=== PATIENT | male | born 1980 | race Caucasian/White ===

== ENCOUNTER 2018-08-14 10:31 | Emergency (ER) | payer OTHER ==
--- NOTE | 2018-08-14 11:04 | EDM.PDOC ---
ED HPI GENERAL MEDICAL PROBLEM - General Chief Complaint: Fever Stated Complaint: FLU SX Time Seen by Provider: 08/14/18 11:04 Source of Information: Reports: Patient History Limitations: Reports: No Limitations - History of Present Illness INITIAL COMMENTS - FREE TEXT/NARRATIVE: 38-year-old male presents to the ED with a 3 day history of illness. Started with fever chills and then cough and then body aches. Has a severe headache as well. Obstructive. Of time to develop versus all developing it once. He has associated nausea vomiting and some diarrhea as well. He's weak he is dizzy and nothing will stay down to bring his fever under control. States he is having diaphoresis of any soaking a hoodie. Several of his children been sick with upper respiratory tract infection 2. States his cough is fairly productive of a yellowish phlegm. He rarely gets ill. He did not have a flu shot this last year. Body aches particularly involving his large vessels neck low back and thighs. is been bilious without blood diarrhea is moderate loose and watery. No blood Onset: Sudden Onset Date: 08/11/18 Duration: Day(s):, Constant, Getting Worse (Getting more dehydrated.) Location: Reports: Chest, Abdomen (Heart paroxysmal productive sounding cough intermittent nausea vomiting and diarrhea), Other Quality: Reports: Ache (Fever chills headache and generalized myalgia) Severity: Moderate Improves with: Reports: None Worsens with: Reports: Eating Context: Reports: Sick Contact. Denies: Activity, Exercise (98 or drink.), Lifting, Trauma, Other Associated Symptoms: Reports: Cough, cough w sputum, Diaphoresis, Fever/Chills, Headaches, Loss of Appetite, Malaise, Nausea/Vomiting, Shortness of Breath, Weakness. 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 (see below) (Nothing will stay down) Generalized Pain Score (Numeric/FACES): 5 - Related Data Allergies Allergy/AdvReac Type Severity Reaction Status Date / Time No Known Allergies Allergy Verified 08/14/18 10:40 Home Meds: Home Meds Hydrocodone/Chlorphen P-Stirex [Tussionex Pennkinetic Susp] 5 ml PO Q12H PRN # 60 ml 08/14/18 [Rx] Sertraline [Zoloft] 50 mg PO DAILY 08/14/18 [History] levoFLOXacin [Levaquin] 500 mg PO DAILY #9 tab 08/14/18 [Rx] Past Medical History - Past Health History Medical/Surgical History: Denies Medical/Surgical History Social & Family History - Tobacco Use Smoking Status *Q: Never Smoker - Recreational Drug Use Recreational Drug Use: No - Living Situation & Occupation Living situation: Reports: (Legally ), Alone Occupation: Employed ED ROS GENERAL - Review of Systems Review Of Systems: See Below Constitutional: Reports: Fever, Chills, Malaise, Weakness, Fatigue, Diaphoresis , Decreased Appetite HEENT: Reports: No Symptoms Respiratory: Reports: Shortness of Breath, Wheezing, Cough, Sputum Cardiovascular: Reports: Chest Pain (From coughing so much anterior chest.), Blood Pressure Problem, Dyspnea on Exertion, Lightheadedness. Denies: Claudication, Edema, Orthopnea (Blood pressure is elevated at this time) Endocrine: Reports: Fatigue GI/Abdominal: Reports: Diarrhea, Nausea (Loose yellow watery stool usually 3 times daily), Vomiting (Bilious emesis. Is started 2 days ago) : Reports: No Symptoms Musculoskeletal: Reports: Muscle Pain (Generalized myalgia particular his large muscles in his back neck and thighs) Skin: Reports: No Symptoms Neurological: Reports: Dizziness (When he stands up.) Psychiatric: Reports: No Symptoms Hematologic/Lymphatic: Reports: No Symptoms ED EXAM, GENERAL - Physical Exam Exam: See Below Exam Limited By: No Limitations General Appearance: Alert, WD/WN, Moderate Distress (Very warm to palpation.) Eye Exam: Bilateral Eye: Normal Inspection Ears: Normal TMs Throat/Mouth: Other Head: Atraumatic, Normocephalic (Tongue is dry and coated but the oropharynx shows no signs of infection) Neck: Normal Inspection, Supple, Non-Tender, Full Range of Motion. No: Carotid Bruit, Lymphadenopathy (L), Lymphadenopathy (R) Respiratory/Chest: No Accessory Muscle Use, Rhonchi, Wheezing (Scattered rhonchi throughout both upper lobes. No wheezing from right lung base.) Cardiovascular: Normal Peripheral Pulses, Regular Rate, Rhythm, No Edema, No Gallop, No Murmur Peripheral Pulses: 3+: Posterior Tibial (L), Posterior Tibial (R), Dorsalis Pedis (L), Dorsalis Pedis (R) GI/Abdominal: Normal Bowel Sounds, Soft, Non-Tender, No Organomegaly, No Abnormal Bruit, No Mass, Pelvis Stable, Other (Well-healed appendectomy scar right lower quadrant) Back Exam: Normal Inspection, Full Range of Motion, Vertebral Tenderness. No: CVA Tenderness (L), CVA Tenderness (R) Extremities: Normal Inspection, Normal Range of Motion, Non-Tender, No Pedal Edema Neurological: Alert, Oriented, CN II-XII Intact, Normal Cognition Psychiatric: Normal Affect, Normal Mood Skin Exam: Warm, Dry, Intact, Normal Color, No Rash Course - Vital Signs Last Recorded V/S: Last Vital Signs Temp 37.3 C 08/14/18 10:37 Pulse 95 08/14/18 10:37 Resp 17 08/14/18 10:37 BP 157/97 H 08/14/18 10:37 Pulse Ox 96 08/14/18 10:37 - Orders/Labs/Meds Labs: Laboratory Tests 08/14/18 08/14/18 Range/Units 11:15 11:15 WBC 10.49 H (4.23-9.07) K/mm3 RBC 5.27 (4.63-6.08) M/mm3 Hgb 15.4 (13.7-17.5) gm/L Hct 46.1 (40.1-51.0) % MCV 87.5 (79.0-92.2) fl MCH 29.2 (25.7-32.2) pg MCHC 33.4 (32.2-35.5) g/dl RDW Std Deviation 41.0 (35.1-43.9) fL Plt Count 203 (163-337) K/mm3 MPV 9.7 (9.4-12.3) fl Neutrophils % (Manual) 64 H (40-60) % Band Neutrophils % 3 (0-10) % Lymphocytes % (Manual) 20 (20-40) % Atypical Lymphs % 0 % Monocytes % (Manual) 13 H (2-10) % Eosinophils % (Manual) 0 L (0.8-7.0) % Basophils % (Manual) 0 L (0.2-1.2) Platelet Estimate Adequate RBC Morph Comment Normal Sodium 135 L (136-145) mEq/L Potassium 3.6 (3.5-5.1) mEq/L Chloride 100 (98-107) mEq/L Carbon Dioxide 26 (21-32) mEq/L Anion Gap 12.6 (5-15) BUN 15 (7-18) mg/dL Creatinine 1.1 (0.7-1.3) mg/dL Est Cr Clr Drug Dosing 83.04 mL/min Estimated GFR (MDRD) > 60 (>60) mL/min BUN/Creatinine Ratio 13.6 L (14-18) Glucose 108 H (74-106) mg/dL Calcium 8.5 (8.5-10.1) mg/dL Magnesium 1.8 (1.8-2.4) mg/dl Total Bilirubin 0.4 (0.2-1.0) mg/dL AST 21 (15-37) U/L ALT 31 (16-63) U/L Alkaline Phosphatase 43 L (46-116) U/L C-Reactive Protein 16.8 H* (<1.0) mg/dL Total Protein 7.6 (6.4-8.2) g/dl Albumin 3.5 (3.4-5.0) g/dl Globulin 4.1 gm/dL Albumin/Globulin Ratio 0.9 L (1-2) Meds: Medications Discontinued Medications Generic Name Dose Route Start Last Admin Trade Name Freq PRN Reason Stop Dose Admin Acetaminophen 975 mg 08/14/18 11:16 08/14/18 11:26 Tylenol PO 08/14/18 11:17 975 mg NOW ONE Administration Ceftriaxone Sodium Confirm 08/14/18 13:02 08/14/18 13:13 Rocephin Administered 08/14/18 13:03 Not Given Dose 2 gm IV .STK-MED ONE Dextrose/Lactated Ringer's 1,000 mls @ 999 mls/hr 08/14/18 11:30 08/14/18 11: 26 Dextrose 5%-Lactated Ringers IV 999 mls/hr ASDIRECTED SHAWNA Administration Ceftriaxone Sodium 2 gm/ 100 mls @ 200 mls/hr 08/14/18 12:48 Sodium Chloride IV 08/14/18 13:17 ONETIME ONE Ceftriaxone Sodium 2 gm/ 100 mls @ 200 mls/hr 08/14/18 12:52 08/14/18 13:15 Sodium Chloride IV 08/14/18 13:21 Not Given ONETIME ONE Sodium Chloride Confirm 08/14/18 13:02 08/14/18 13:13 Normal Saline Administered 08/14/18 13:03 Not Given Dose 100 mls @ as directed .ROUTE .STK-MED ONE Ceftriaxone Sodium 2 gm/ 100 mls @ 200 mls/hr 08/14/18 13:14 Sodium Chloride IV 08/14/18 13:43 STAT STA Ketorolac Tromethamine 30 mg 08/14/18 11:30 08/14/18 11:28 Toradol IVPUSH 30 mg ONETIME SHAWNA Administration Levofloxacin 500 mg 08/14/18 12:49 08/14/18 13:12 Levaquin PO 08/14/18 12:50 500 mg ONETIME ONE Administration Metoclopramide HCl 10 mg 08/14/18 11:17 08/14/18 11:26 Reglan IVPUSH 08/14/18 11:18 10 mg ONETIME ONE Administration - Radiology Interpretation Free Text/Narrative:: 38-year-old male presents the ED with fever chills diaphoresis generalized myalgia . Has a paroxysmal semi-productive cough 3-4 days. No associated nausea or vomiting and little bit of diarrhea. Clinically he sounds like he has influenza. However influenza screen done by the triage nurse came back negative. I still suspect he has influenza. We'll go ahead with lab work and investigations with chest x-ray. IV will be D5 Ringer's lactate at open. Given Reglan 10 mg IV for nausea relief. Toradol 30 mg IV for body ache relief and will give Tylenol 975 mg by mouth in 15 minutes after the Reglan for fever relief. - Re-Assessments/Exams Free Text/Narrative Re-Assessment/Exam: 08/14/18 12:46 Labs are back revealing a white count of 10.49 with 64% neutrophils and 3% bands. Hemoglobin is 15.4 hematocrit of 46.1. Platelet count 203,000. Sodium 135 slightly low. Potassium 3.6 with a chloride of 100. Bicarbonate 26. Anion gap is 12.6 with a BUN of 15 creatinine is 1.1. GFR remains greater than 60. Glucose is 108. Calcium is 8.5. Magnesium is 1.8. Liver function normal. C-reactive protein is markedly elevated at 16.8 suggesting underlying bacterial infection. Chest x-ray reveals prominence of the right pulmonary artery and perhaps early infective process involving the right middle lobe. BX silhouette is borderline cardiomegaly. No proceed with a dose of intravenous antibiotics. Will be given Rocephin 2 g IV here. Levaquin 500 mg by mouth. 08/14/18 13:52 patient has completed his IV Rocephin 2 g. He will therefore be discharged home on Levaquin 500 mg once daily for another 9 days starting tomorrow. Also given cough syrup Tussionex 5 mils to be taken every 12 hours when necessary for cough relief. He will continue Motrin 6 mg every 6 hours for fever relief. Note given to excuse him from the work place for the next 3 days Departure - Departure Time of Disposition: 13:52 Disposition: Home, Self-Care 01 Condition: Fair Clinical Impression: Pneumonia Qualifiers: Pneumonia type: due to unspecified organism Laterality: right Lung location: lower lobe of lung Qualified Code(s): J18.1 - Lobar pneumonia, unspecified organism - Discharge Information *PRESCRIPTION DRUG MONITORING PROGRAM REVIEWED*: Not Applicable *COPY OF PRESCRIPTION DRUG MONITORING REPORT IN PATIENT KEL: Not Applicable Prescriptions: Hydrocodone/Chlorphen P-Stirex [Tussionex Pennkinetic Susp] 5 ml PO Q12H PRN # 60 ml PRN Reason: Cough relief levoFLOXacin [Levaquin] 500 mg PO DAILY #9 tab Instructions: Community-Acquired Pneumonia, Adult, [id number] Referrals: Chula Alonso [facility]EL[facility] [Primary Care Provider] - Forms: ED Department Discharge, ED Return to Work/School Form Additional Instructions: Evaluation the emergency room today in regards to acute onset of febrile illness with body aches headache and cough. Likely had signs and symptoms of influenza but the influenza screen did come back negative. Lab work does reveal a slightly elevated white blood cell count and a left shift indicative of a bacterial infection. Other markers for bacterial infection are also elevated. As x-ray suggested early pneumonia developing in the right middle and lower lobe of lung. You're therefore treated in the ED with intravenous fluids and you 're given medications for fever and pain relief. Also first dose of Levaquin was given orally. You'll need take this tablet once daily for the next 9 days starting tomorrow about noon. He will need Motrin 600 mg every 6 hours to bring down fever and body ache. Off medication is Tussionex suspension 5 mils every 12 hours as needed for cough relief. Plan on taking in a good hour before bedtime as it takes a good hour to work. Suggest off work for at least the next 2 days and likely 3 days until you're able to eat drink normally and have no further fever.
[2018-08-14] MEDS ORDERED: Acetaminophen 325 MG Tab PO ONE (11:16)
[2018-08-14] MEDS ORDERED: Metoclopramide 10 MG/2 ML SDV IVPUSH ONE (11:17)
[2018-08-14] MEDS ORDERED: Ketorolac 30 MG/ML SDV IVPUSH SCH (11:30)
[2018-08-14] MEDS ORDERED: Dextrose 5%-Lactated Ringers 1,000 ML IV SCH (11:30)
--- NOTE | 2018-08-14 12:05 | CR ---
Chest: Portable view of the chest was obtained. Comparison: No prior chest x-ray. Heart size and mediastinum are normal. Lungs are clear. Bony structures are grossly intact. Impression: 1. Nothing acute is seen on portable chest x-ray. Diagnostic code #1
[2018-08-14] MEDS ORDERED: cefTRIAXone 2 GM in Sodium Chloride 0.9% 100 ML IV ONE ×2 (12:48→12:52)
[2018-08-14] MEDS ORDERED: Levofloxacin 250 MG Tab PO ONE (12:49)
[2018-08-14] MEDS ORDERED: Sodium Chloride 0.9% 100 ML ONE (13:02)
[2018-08-14] MEDS ORDERED: cefTRIAXone 2 GM AdvVial IV ONE (13:02)
[2018-08-14] MEDS ORDERED: cefTRIAXone 2 GM in Sodium Chloride 0.9% 100 ML IV STA (13:14)
== END 2018-08-14 14:25 | disposition home or self-care (01) ==
LOC: JD.ED 10:31
DX: J18.1 Lobar pneumonia, unspecified organism (principal); Z79.899 Other long term (current) drug therapy
CPT/HCPCS: 36415; 71045; 80053; 83735; 85007; 85027; 86140; 87804; 96361; 96365; 96375; 99284; A9270; J1885; J2765; J7042